=== PATIENT | female | born 1980 | race Caucasian/White ===

== ENCOUNTER 2017-02-03 16:19 | Emergency (ER) | payer OTHER ==
[~2017-02-03 16:19] MED LIST: ALDACTAZIDE PO; AMLODIPINE BESY10 MG PO; ATARAX PO; CELEXA20 MG PO; EFFEXOR XR150 MG PO; EPIPEN0.3 MG/0.1 IM; FAMOTIDINE PO; FISH OIL300 MG PO; FLEXERIL10 MG PO; IBUPROFEN600 MG PO; JANUVIA100 MG PO; LIPITOR20 MG; LORTAB 5/500 TA1 TA1 PO; MEDROL PO; MOBIC15 MG PO; PEPCID PO; PREDNISONE PO; SEASONALE1 BLIST PA PO; VIT D PO; [UNRECOGNIZED DRUG - OTHER]
[2017-02-03] MEDS ORDERED: PEPCID (16:40)
[2017-02-03] MEDS ORDERED: EFFEXOR (16:40)
[2017-02-03] MEDS ORDERED: INVOKANA100 MG (16:40)
[2017-02-03] MEDS ORDERED: LIPITOR (16:41)
[2017-02-03] MEDS ORDERED: NORVASC (16:41)
[2017-02-03] MEDS ORDERED: MOBIC (16:41)
[2017-02-03] MEDS ORDERED: VITAMIN D-32000 UNIT (16:41)
[2017-02-03] MEDS ORDERED: ACTOS (16:41)
== END 2017-02-03 17:33 | disposition home or self-care (01) ==
LOC: SED 16:19
DX: S33.5XXA Sprain of ligaments of lumbar spine, initial encounter (principal); E11.9 Type 2 diabetes mellitus without complications; F17.200 Nicotine dependence, unspecified, uncomplicated; V43.52XA Car driver injured in collision with other type car in traffic accident, initial encounter; Y93.89 Activity, other specified; Y92.410 Unspecified street and highway as the place of occurrence of the external cause
CPT/HCPCS: 99283